=== PATIENT | female | born 1940 | race Caucasian/White ===

== ENCOUNTER 2017-03-29 07:42 | Day surgery (SDC) | payer MEDICARE, OTHER ==
[~2017-03-29] VITALS: Ht 165.1 cm; Wt 60.9 kg
[~2017-03-29 07:42] MED LIST: ACETAMINOPHEN 500 MG TAB (TYLENOL) PO PRN; CHONDROITIN/HYALURONATE (DISCOVISC) 1 ML SYR IO ONE; PHENYLEPHRINE/KETOROLAC 4 ML VIAL IO ONE; SODIUM CHLORIDE FLUSH 3 ML SYR IV PRN; TETRACAINE 0.5% OPHTHALMIC SOLUTION 4 ML BTL ONE; diphenhydrAMINE 50 MG/ML INJ (BENADRYL) IV PRN
--- OUTSIDE RECORDS SUMMARY | 2017-03-29 07:46 | XMS REPORT | Continuity of Care Document ---
Author Author [facility] Organization [facility] Address Unknown Phone Unavailable Allergies Active Description Code Type Severity Reaction Onset Reported/Identified Relationship to Patient Clinical Status Yes NKA NKA Drug Allergy N/A N/A Medications Problems Date Dx Coded Attending Type Code Diagnosis Diagnosed By 06/07/2013 CORNEL THORNTON [id number] JOINT PAIN-ANKLE 01/10/2014 NEVILLE MEDINA A 2449 HYPOTHYROIDISM NOS 10/16/2014 NEVILLE MEDINA A 2724 HYPERLIPIDEMIA NEC/NOS 10/25/2014 NEVILLE MEDINA A 2724 HYPERLIPIDEMIA NEC/NOS 02/11/2015 KIRSTIE RENTERIA 56222 JOINT PAIN-ANKLE 03/27/2015 KIRSTIE RENTERIA A 7231 CERVICALGIA 03/28/2015 RENTERIA, KIRSTIE A 7231 CERVICALGIA 03/28/2015 RENTERIA, KIRSTIE A 7231 CERVICALGIA 04/08/2015 NEVILLE MEDINA A 2724 HYPERLIPIDEMIA NEC/NOS 10/15/2015 Fernando Ibarra D12.0 Benign Neoplasm Of Cecum 10/29/2015 JULIETA ANDREA M25.571 10/31/2015 JULIETA ANDREA M25.571 11/14/2015 JULIETA ANDREA M25.571 04/02/2016 NEVILLE MEDINA P E03.9 HYPOTHYROIDISM, UNSPECIFIED 04/02/2016 NEVILLE MEDINA S E78.0 PURE HYPERCHOLESTEROLEMIA 04/02/2016 NEVILLE MEDINA S Z51.81 ENCOUNTER FOR THERAPEUTIC DRUG LEVEL MONITORING 04/02/2016 NEVILLE MEDINA S 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 05/14/2016 NEVILLE MEDINA P E03.9 HYPOTHYROIDISM, UNSPECIFIED 10/05/2016 NEVILLE MEDINA P E78.5 HYPERLIPIDEMIA, UNSPECIFIED 12/25/2016 YAZMIN HERNANDEZ S M19.012 PRIMARY OSTEOARTHRITIS, LEFT SHOULDER 12/25/2016 YAZMIN HERNANDEZ P M25.512 PAIN IN LEFT SHOULDER 12/25/2016 YAZMIN HERNANDEZ S M75.32 CALCIFIC TENDINITIS OF LEFT SHOULDER 02/08/2017 JULIETA ANDREA M79.671 PAIN IN RIGHT FOOT 02/10/2017 JULIETA ANDREA M79.671 PAIN IN RIGHT FOOT 02/26/2017 JULIETA ANDREA M79.671 PAIN IN RIGHT FOOT Procedures Results Test Result Range CBC/ AUTO DIFF - 01/10/14 08:30 WHITE BLOOD COUNT 6.65 10 4.60-10.20 HEMATOCRIT 41.0 % 37.0-47.0 HEMOGLOBIN 13.5 g/dl 12.0-16.0 PLATELET COUNT 289 10 142-424 RBC 4.34 10 4.20-5.40 MCV 94.5 fl 80.0-100.0 MCH 31.1 pg 26.0-34.0 MCHC 32.9 g/dl 29.0-37.0 RDW 13.1 % 11.5-14.5 MPV 10.00 fl GRAN% 61.7 % 37.0-80.0 LYMPH% 23.50 % 10.00-50.00 MONO% 11.90 % 0.00-12.00 EOS% 2.60 % 0.00-7.00 BASO% 0.30 % 0.00-2.50 GRAN# 4.11 10 2.00-6.90 LYMPH# 1.56 10 0.60-3.40 MONO# 0.79 10 0.00-0.90 EOS# 0.17 10 0.00-0.50 BASO# 0.02 10 0.00-0.20 COMPREHENSIVE METABOL - 01/10/14 08:30 CREATININE 0.7 mg/dl 0.6-1.3 SODIUM 143 mmol/L 136-145 TOTAL BILIRUBIN 0.4 mg/dl 0.0-1.0 TOTAL PROTEIN 7.2 g/dl 6.4-8.2 ALBUMIN 3.8 g/dl 3.4-5.0 ALK. PHOSPHATASE 156 U/L 50-136 BUN 18 mg/dl 7-18 CALCIUM 8.8 mg/dl 8.5-10.1 CHLORIDE 105 mmol/L 98-107 CO2 30.5 mmol/L 21.0-32.0 GLUCOSE 97 mg/dl 70-110 POTASSIUM 3.9 mmol/L 3.5-5.1 AST 21 U/L 15-37 ALT 35 U/L 12-78 AGAP 11.4 6.0-16.0 BN/CR 25.7 6.0-20.0 LIPID PANEL - 01/10/14 08:30 TRIGLYCERIDES 83 mg/dl 0-150 CHOLESTEROL 221 mg/dl 0-200 HDL CHOLESTEROL 58 mg/dl >40- LDL 146 mg/dl 0-130 HTSH - 01/10/14 08:30 HTSH 4.09 uiU/ml 0.34-4.82 COMPREHENSIVE METABOL - 10/16/14 07:35 CREATININE 1.0 mg/dl 0.6-1.3 SODIUM 140 mmol/L 136-145 TOTAL BILIRUBIN 0.3 mg/dl 0.0-1.0 TOTAL PROTEIN 7.0 g/dl 6.4-8.2 ALBUMIN 3.7 g/dl 3.4-5.0 ALK. PHOSPHATASE 141 U/L 50-136 BUN 26 mg/dl 7-18 CALCIUM 8.9 mg/dl 8.5-10.1 CHLORIDE 104 mmol/L 98-107 CO2 29.6 mmol/L 21.0-32.0 GLUCOSE 90 mg/dl 70-110 POTASSIUM 4.3 mmol/L 3.5-5.1 AST 18 U/L 15-37 ALT 31 U/L -78 AGAP 10.7 6.0-16.0 BN/CR 26.0 6.0-20.0 LIPID PANEL - 10/16/14 07:35 TRIGLYCERIDES 86 mg/dl 0-150 CHOLESTEROL 230 mg/dl 0-200 HDL CHOLESTEROL 64 mg/dl >40- LDL 149 mg/dl 0-130 CBC/ AUTO DIFF - 04/08/15 07:45 WHITE BLOOD COUNT 6.29 10 4.60-10.20 HEMATOCRIT 40.4 % 37.0-47.0 HEMOGLOBIN 13.2 g/dl 12.0-16.0 PLATELET COUNT 262 10 142-424 RBC 4.29 10 4.20-5.40 MCV 94.2 fl 80.0-100.0 MCH 30.8 pg 26.0-34.0 MCHC 32.7 g/dl 29.0-37.0 RDW 12.9 % 11.5-14.5 MPV 10.10 fl GRAN% 64.6 % 37.0-80.0 LYMPH% 21.90 % 10.00-50.00 MONO% 10.50 % 0.00-12.00 EOS% 2.50 % 0.00-7.00 BASO% 0.50 % 0.00-2.50 GRAN# 4.06 10 2.00-6.90 LYMPH# 1.38 10 0.60-3.40 MONO# 0.66 10 0.00-0.90 EOS# 0.16 10 0.00-0.50 BASO# 0.03 10 0.00-0.20 COMPREHENSIVE METABOL - 04/08/15 07:45 CREATININE 0.9 mg/dl 0.6-1.3 SODIUM 139 mmol/L 136-145 TOTAL BILIRUBIN 0.4 mg/dl 0.0-1.0 TOTAL PROTEIN 7.0 g/dl 6.4-8.2 ALBUMIN 3.6 g/dl 3.4-5.0 ALK. PHOSPHATASE 129 U/L 50-136 BUN 22 mg/dl 7-18 CALCIUM 9.1 mg/dl 8.5-10.1 CHLORIDE 102 mmol/L 98-107 CO2 28.9 mmol/L 21.0-32.0 GLUCOSE 90 mg/dl 70-110 POTASSIUM 4.2 mmol/L 3.5-5.1 AST 20 U/L 15-37 ALT 30 U/L 12-78 AGAP 12.3 6.0-16.0 BN/CR 24.4 6.0-20.0 LIPID PANEL - 04/08/15 07:45 TRIGLYCERIDES 71 mg/dl 0-150 CHOLESTEROL 183 mg/dl 0-200 HDL CHOLESTEROL 58 mg/dl >40- LDL 111 mg/dl 0-130 HTSH - 04/08/15 07:45 HTSH 0.89 uiU/ml 0.34-4.82 CBC/ AUTO DIFF - 04/02/16 11:45 WHITE BLOOD COUNT 6.31 10 4.60-10.20 HEMATOCRIT 39.3 % 37.0-47.0 HEMOGLOBIN 13.2 g/dl 12.0-16.0 PLATELET COUNT 266 10 142-424 RBC 4.17 10 4.20-5.40 MCV 94.2 fl 80.0-100.0 MCH 31.7 pg 26.0-34.0 MCHC 33.6 g/dl 29.0-37.0 RDW 12.8 % 11.5-14.5 MPV 9.90 fl GRAN% 67.8 % 37.0-80.0 LYMPH% 18.90 % 10.00-50.00 MONO% 11.30 % 0.00-12.00 EOS% 1.70 % 0.00-7.00 BASO% 0.30 % 0.00-2.50 GRAN# 4.28 10 2.00-6.90 LYMPH# 1.19 10 0.60-3.40 MONO# 0.71 10 0.00-0.90 EOS# 0.11 10 0.00-0.50 BASO# 0.02 10 0.00-0.20 COMPREHENSIVE METABOL - 04/02/16 11:45 CREATININE 0.8 mg/dl 0.6-1.3 SODIUM 140 mmol/L 136-145 TOTAL BILIRUBIN 0.3 mg/dl 0.0-1.0 TOTAL PROTEIN 6.8 g/dl 6.4-8.2 ALBUMIN 3.8 g/dl 3.4-5.0 ALK. PHOSPHATASE 107 U/L 50-136 BUN 24 mg/dl 7-18 CALCIUM 8.7 mg/dl 8.5-10.1 CHLORIDE 105 mmol/L 98-107 CO2 26.9 mmol/L 21.0-32.0 GLUCOSE 90 mg/dl 70-110 POTASSIUM 4.1 mmol/L 3.5-5.1 AST 20 U/L 15-37 ALT 31 U/L 12-78 AGAP 12.2 6.0-16.0 BN/CR 29.6 6.0-20.0 LIPID PANEL - 04/02/16 11:45 TRIGLYCERIDES 55 mg/dl 0-150 CHOLESTEROL 186 mg/dl 0-200 HDL CHOLESTEROL 68 mg/dl >40- LDL 107 mg/dl 0-130 HTSH - 04/02/16 11:45 HTSH 0.28 uiU/ml 0.34-4.82 HTSH - 05/14/16 08:05 HTSH 0.90 uiU/ml 0.35-3.74 LIPID PANEL - 10/05/16 07:45 TRIGLYCERIDES 62 mg/dl 0-150 CHOLESTEROL 213 mg/dl 0-200 HDL CHOLESTEROL 63 mg/dl >40- LDL 138 mg/dl 0-130 Encounters ACCT No. Visit Date/Time Discharge Status Pt. Type Provider Facility Loc./Unit Complaint [id number] 10/11/2015 12:00:00 10/11/2015 23: 59:00 DIS Outpatient Fernando Ibarra [facility] OUTPT Colonoscopy
[2017-03-29 08:12] VITALS: BP 141/79
[2017-03-29] MEDS: LIDOCAINE 3.5% OPHTH GEL (AKTEN) 1 ML BTL OD SCH ×4 (08:18→08:54)
[2017-03-29] MEDS ORDERED: LUTE20CA PO (08:39)
[2017-03-29] MEDS ORDERED: ATOR10TA PO (08:39)
[2017-03-29] MEDS ORDERED: CALC600T12 PO (08:39)
[2017-03-29] MEDS ORDERED: LEVO112T4 PO (08:39)
[2017-03-29] MEDS ORDERED: CETI10TA20 PO (08:39)
[2017-03-29] MEDS: HOME MEDICATION OD SCH ×2 (08:43→08:54)
[2017-03-29] MEDS: CATARACT PRE-OP EYE DROPS 0.5ML SYRINGE OD SCH ×2 (08:43→08:54)
[2017-03-29] MEDS ORDERED: MIDAZOLAM 2 MG/2 ML (VERSED) VIAL ONE (09:13)
[2017-03-29] MEDS ORDERED: ALFENTANIL 1,000 MCG/2 ML AMP IV ONE (09:25)
[2017-03-29 09:51] VITALS: BP 143/74
[2017-03-29 10:19] VITALS: BP 128/64
== END 2017-03-29 10:22 | disposition home or self-care (01) ==
LOC: ASC 07:42
PROVIDERS: ATTEND Ophthalmology
DX: H25.12 Age-related nuclear cataract, left eye (principal); E03.9 Hypothyroidism, unspecified
CPT/HCPCS: 66982; A9270; C9447; J2250; V2632